=== PATIENT | male | born 1980 | race Caucasian/White ===

== ENCOUNTER → 2017-06-19 | Outpatient (CLI) | payer BC ==
[~2017-06-19] MED LIST: MULT-658 PO; OXYC-306 PO
== END ==
LOC: STAR 14:50
PROVIDERS: ATTEND Orthopaedic Surgery
DX: Z02.9 Encounter for administrative examinations, unspecified (principal)

== ENCOUNTER 2017-06-25 07:30 | Day surgery (SDC) | payer BC ==
[~2017-06-25] VITALS: Ht 179.1 cm; Wt 103.7 kg
[~2017-06-25 07:30] MED LIST changes: +BUPIVACAINE/PF 0.5% ONE
[2017-06-25] MEDS ORDERED: LACTATED RINGERS 1,000 ML IV SCH (07:54)
[2017-06-25] MEDS ORDERED: GABAPENTIN 300 MG CAPSULE PO ONE (08:00)
[2017-06-25] MEDS ORDERED: ONDANSETRON ODT 8 MG PO ONE (08:00)
[2017-06-25] MEDS ORDERED: ACETAMINOPHEN 500 MG TABLET PO ONE (08:00)
[2017-06-25] MEDS ORDERED: LIDOCAINE-MPF 1%, 2ML ONE (08:10)
[2017-06-25 08:15] VITALS: BP 127/81
[2017-06-25] MEDS ORDERED: LIDOCAINE 1%, 50ML ONE (08:20)
[2017-06-25] MEDS ORDERED: EPINEPHRINE 1 MG/ML, 1ML ONE (08:20)
[2017-06-25] MEDS ORDERED: FENTANYL PF 100 MCG/2ML ONE (08:28)
[2017-06-25] MEDS ORDERED: BUPIVACAINE/PF 0.5% ONE (08:29)
[2017-06-25] MEDS ORDERED: MIDAZOLAM 1 MG/ML, 2ML ONE (08:29)
[2017-06-25] MEDS ORDERED: LIDOCAINE-MPF 2% ,5ML ONE (08:29)
[2017-06-25] MEDS ORDERED: ROCURONIUM 10 MG/ML,10ML ONE (09:25)
[2017-06-25] MEDS ORDERED: KETOROLAC 30 MG/1 ML ONE (09:25)
[2017-06-25] MEDS ORDERED: LABETALOL 5MG/ML, 20ML IV PRN (10:00)
[2017-06-25] MEDS ORDERED: LORazepam 2 MG/ML, 1ML IVPush PRN (10:00)
[2017-06-25] MEDS ORDERED: ALBUTEROL/IPRATROPIUM 2.5MG/0.5MG, 3 ML NPPB PRN (10:00)
[2017-06-25] MEDS ORDERED: hydrALAzine 20 MG/ML, 1ML IV PRN (10:00)
[2017-06-25] MEDS ORDERED: PROMETHAZINE 25 MG/ML, 1ML IV PRN (10:00)
[2017-06-25] MEDS ORDERED: MIDAZOLAM 1 MG/ML, 2ML IV PRN (10:00)
[2017-06-25] MEDS ORDERED: MEPERIDINE/PF 25MG/0.5ML IVPush PRN (10:00)
[2017-06-25] MEDS ORDERED: PROMETHAZINE 12.5 MG SUPP PR PRN (10:00)
[2017-06-25] MEDS ORDERED: DIAZEPAM 5 MG/ML, 2ML IVPush PRN (10:00)
[2017-06-25] MEDS ORDERED: ONDANSETRON 2MG/ML, 2ML IVPush PRN (10:00)
[2017-06-25] MEDS ORDERED: OXYcodone 5 MG/5 ML ORAL.SOL UDC PO PRN (10:00)
[2017-06-25] MEDS ORDERED: FENTANYL PF 100 MCG/2ML IV PRN (10:00)
[2017-06-25] MEDS ORDERED: morphine SULFATE 10 MG/ML, 1ML IV PRN (10:00)
[2017-06-25] MEDS ORDERED: METOCLOPRAMIDE 5 MG/ML, 2ML IV PRN (10:00)
[2017-06-25] MEDS ORDERED: CEFAZOLIN 1,000 MG ONE (10:05)
[2017-06-25] MEDS ORDERED: DEXAMETHASONE 4 MG/ML, 1ML ONE (10:05)
[2017-06-25] MEDS ORDERED: SUCCINYLCHOLINE 20 MG/ML, 10ML ONE (10:05)
[2017-06-25] MEDS ORDERED: PROPOFOL 10 MG/ML, 20ML ONE (10:05)
[2017-06-25] MEDS ORDERED: ONDANSETRON 2MG/ML, 2ML ONE (10:05)
[2017-06-26] MEDS ORDERED: MULTIVITAMIN 1 TABLET PO SCH (09:00)
== END 2017-06-25 13:00 | disposition home or self-care (01) ==
LOC: OUT 07:30
PROVIDERS: ATTEND Orthopaedic Surgery
DX: S43.431A Superior glenoid labrum lesion of right shoulder, initial encounter (principal); M75.41 Impingement syndrome of right shoulder; M19.011 Primary osteoarthritis, right shoulder; M65.811 Other synovitis and tenosynovitis, right shoulder; X58.XXXA Exposure to other specified factors, initial encounter; Y93.64 Activity, baseball; Y92.89 Other specified places as the place of occurrence of the external cause; Y99.8 Other external cause status; Z72.89 Other problems related to lifestyle; Z82.49 Family history of ischemic heart disease and other diseases of the circulatory system
CPT/HCPCS: 29823; 29824; 29826; 64415; J0171; J0330; J0690; J1100; J1885; J2250; J2405; J2704; J3010; J3490; J7120; Q0162